=== PATIENT | female | born 1980 | race Caucasian/White ===

== ENCOUNTER 2019-02-02 12:53 | Emergency (ER) | payer MEDICAID ==
--- NOTE | 2019-02-02 13:09 | Emergency Department Record ---
History of Present Illness - General Chief Complaint: Neck Injury/Pain Stated Complaint: NECK PAIN Time Seen by Provider: 02/02/19 13:04 Source: Patient, RN notes reviewed Mode of Arrival: Ambulatory - History of Present Illness Initial Comments: neck pain yesterday am when she wake up and the day before she lifted a heavy fan and her neck hurt for a little bit than. Pain worse today and she took 4 ibuprofen at 4 am and it didn't help. PMH negative, family Dr is medical free in [place].Patient states she goes to methadone clinic in [facility] and they are blinding lowering her methadone. Goes every two weeks. MD Complaint: Neck pain Onset/Timin -: Days(s) Place: Home Radiation: Other Severity scale (1-10): 10 Quality: Aching, Tingling Consistency: Constant Improves With: None Worsens With: None Treatments Prior to Arrival: Ibuprofen - Related Data Previous Rx's Medication Instructions Recorded Cyclobenzaprine HCl [Flexeril] 10 mg PO TID #30 tablet 02/02/19 Naproxen [Naprosyn] 500 mg PO BID #30 tablet 02/02/19 Allergies Allergy/AdvReac Type Severity Reaction Status Date / Time No Known Drug Allergies Allergy Verified 02/02/19 13:01 Travel Screening - Travel/Exposure Within Last 30 Days Have you traveled within the last 30 days?: No - Travel/Exposure Within Last Year Have you traveled outside the [place] in the last year?: No - Additonal Travel Details Have you been exposed to anyone with a communicable illness?: No Review of Systems Reviewed: No additional complaints except as noted below Constitutional: Reports: As per HPI. Denies: Chills, Fever, Malaise, Night sweats, Weakness, Weight change Eyes: Reports: As per HPI. Denies: Eye discharge, Eye pain, Photophobia, Vision change ENT: Reports: As per HPI. Denies: Congestion, Dental pain, Ear pain, Epistaxis, Hearing loss, Throat pain Respiratory: Reports: As per HPI. Denies: Cough, Dyspnea, Hemoptysis, Stridor, Wheezes Cardiovascular: Reports: As per HPI. Denies: Arrhythmia, Chest pain, Dyspnea on exertion, Edema, Murmurs, Orthopnea, Palpitations, Paroxysmal nocturnal dyspnea, Rheumatic Fever, Syncope Endocrine: Reports: As per HPI. Denies: Fatigue, Heat or cold intolerance, Polydipsia, Polyuria Gastrointestinal: Reports: As per HPI. Denies: Abdominal pain, Constipation, Diarrhea, Hematemesis, Hematochezia, Melena, Nausea, Vomiting Genitourinary: Reports: As per HPI. Denies: Abnormal menses, Discharge, Dyspareunia, Dysuria, Frequency, Hematuria, Incontinence, Retention, Urgency Musculoskeletal: Reports: As per HPI, Neck pain. Denies: Arthralgia, Back pain, Gout, Joint swelling, Myalgia Skin: Reports: As per HPI. Denies: Bruising, Change in color, Change in hair/nails, Lesions, Pruritus, Rash Neurological: Reports: As per HPI. Denies: Abnormal gait, Confusion, Headache, Numbness, Paresthesias, Seizure, Tingling, Tremors, Vertigo, Weakness Psychiatric: Reports: As per HPI. Denies: Anxiety, Auditory hallucinations, Depression, Homicidal thoughts, Suicidal thoughts, Visual hallucinations Hematological/Lymphatic: Reports: As per HPI. Denies: Anemia, Blood Clots, Easy bleeding, Easy bruising, Swollen glands Past Medical History - SOCIAL HISTORY Smoking Status: Current every day smoker Alcohol Use: Rare Drug Use: None - RESPIRATORY Hx Respiratory Disorders: No - CARDIOVASCULAR Hx Cardio Disorders: No - NEURO Hx Neuro Disorders: No - GI Hx GI Disorders: No - Hx Genitourinary Disorders: No - ENDOCRINE Hx Endocrine Disorders: No - MUSCULOSKELETAL Hx Musculoskeletal Disorders: No - PSYCH Hx Psych Problems: No - HEMATOLOGY/ONCOLOGY Hx Hematology/Oncology Disorders: No Family Medical History Any Significant Family History?: No Physical Exam - General General Appearance: Alert, Oriented x3, Cooperative, No acute distress - Head Head exam: Normal inspection - Eye Eye exam: Normal appearance, PERRL Pupils: Normal accommodation - ENT ENT exam: Normal exam, Mucous membranes moist, Normal external ear exam, Normal orophraynx, TM's normal bilaterally Ear exam: Normal external inspection. negative: External canal tenderness Nasal Exam: Normal inspection. negative: Discharge, Sinus tenderness Mouth exam: Normal external inspection, Tongue normal Teeth exam: Normal inspection. negative: Dental caries Throat exam: Normal inspection. negative: Tonsillar erythema, Tonsillar exudate - Neck Neck exam: Normal inspection, Tenderness (right side of neck muscle spasms). negative: Lymphadenopathy, Meningismus, Thyromegaly - Respiratory Respiratory exam: Normal lung sounds bilaterally. negative: Respiratory distress - Cardiovascular Cardiovascular Exam: Regular rate, Normal rhythm, Normal heart sounds - GI/Abdominal GI/Abdominal exam: Soft, Normal bowel sounds. negative: Tenderness - Rectal Rectal exam: Deferred - exam: Deferred - Extremities Extremities exam: Normal inspection, Full ROM, Normal capillary refill, Tenderness - Back Back exam: Reports: Normal inspection, Full ROM, Muscle spasm, Tenderness (neck pain). Denies: Rash noted - Neurological Neurological exam: Alert, Normal gait, Oriented X3, Reflexes normal - Psychiatric Psychiatric exam: Normal affect, Normal mood - Skin Skin exam: Dry, Intact, Normal color, Warm Course Vital Signs 02/02/19 12:55 Temperature 98.2 F Pulse Rate 79 Respiratory 16 Rate Blood Pressure 173/103 Pulse Ox 98 - Reevaluation(s) Reevaluation #1: 02/02/19 13:38 feeling better Disposition Clinical Impression: Cervical strain, acute Qualifiers: Encounter type: initial encounter Qualified Code(s): S16.1XXA - Strain of muscle, fascia and tendon at neck level, initial encounter Disposition: Home, Self-Care Condition: (1) Good Instructions: Cervical Sprain (ED) Additional Instructions: heat four times a day follow up with a family Dr in 1-2 weeks stop ibuprofen Prescriptions: Cyclobenzaprine HCl [Flexeril] 10 mg PO TID #30 tablet Naproxen [Naprosyn] 500 mg PO BID #30 tablet Forms: Patient Portal Access Time of Disposition: 13:22 Quality - Quality Measures Quality Measures: N/A - Blood Pressure Screening Does Patient Have Any of the Following: No Blood Pressure Classification: Hypertensive Reading Systolic Measurement: 173 Diastolic Measurement: 103 Screening for High Blood Pressure: < First Hypertensive BP, F/U Documented > [[id number]] First Hypertensive Follow-up Interventions: Referral to alternative/primary care provider.
[2019-02-02] MEDS ORDERED: KETOROLAC 60 MG/2 ML VIAL IM STA (13:17)
[2019-02-02] MEDS ORDERED: 0.9 % SODIUM CHLORIDE 1000ML 1,000 ML IV SCH (13:45)
== END 2019-02-02 13:50 | disposition home or self-care (01) ==
LOC: ER 12:53
DX: S16.1XXA Strain of muscle, fascia and tendon at neck level, initial encounter (principal); X50.0XXA Overexertion from strenuous movement or load, initial encounter; Y92.009 Unspecified place in unspecified non-institutional (private) residence as the place of occurrence of the external cause; F17.210 Nicotine dependence, cigarettes, uncomplicated
CPT/HCPCS: 96372; 99283; J1885